=== PATIENT | female | born 1970 | race Caucasian/White ===

== ENCOUNTER → 2022-04-22 | Outpatient (CLI) | payer MEDICAID, SELFPAY ==
[2022-04-22 10:58] LABS: D-Dimer Quantitative (DVT/PE) < 0.27 FEU/ug/m (0.27-0.49)
== END | disposition home or self-care (01) ==
PROVIDERS: PCP Family Medicine; Referring Provider Family Medicine; Visit Provider Family Medicine
DX: R07.9 Chest pain, unspecified (principal)
CPT/HCPCS: 85379

== ENCOUNTER 2023-01-14 13:51 | Emergency (ER) | payer MEDICAID, SELFPAY ==
[2023-01-14 13:52] VITALS: BP 145/120; PULSE 102; RESP 16; TEMP 36.6; O2SAT 100; BMI 34.4
--- NOTE | 2023-01-14 14:29 | EKG12_ITS ---
Test Reason : CP Blood Pressure : / mmHG Vent. Rate : 103 BPM Atrial Rate : 103 BPM P-R Int : 152 ms QRS Dur : 066 ms QT Int : 342 ms P-R-T Axes : 027 028 034 degrees QTc Int : 448 ms Sinus tachycardia Nonspecific T wave abnormality Abnormal ECG Confirmed by OWEN MENDOZA, ROM ([id number]), photography editor TREE LEY ([id number]) on 01/24/2023 7:49:00 AM Referred By: MASON/LIST Confirmed By:ARMANDO WEAVER MD
--- NOTE | 2023-01-14 14:29 | CT_ITS ---
STUDY: CTA CHEST REASON FOR EXAM: Female, 52 years old. Pain -- recent RLL PE/pleural effusion RADIATION DOSAGE (If Supplied By Facility): CTDIvol = ( 13.24 ) mGy, DLP = ( 431.80 ) mGycm TECHNIQUE: The examination was performed with the intravenous administration of IV 100mL Isovue-370. Post-processing of the angiographic images was performed, with multiplanar reformation and 3D reconstruction. Individualized dose optimization techniques were used for this CT. COMPARISON: None. FINDINGS: Normal enhancement of the main pulmonary artery and right and left pulmonary arteries. Normal enhancement of the bilateral peripheral pulmonary arteries. There is no demonstrated pulmonary embolism. Normal thoracic aorta and visualized great vessels. There is no demonstrated aortic dissection. Normal heart and pericardium. Normal mediastinum. Normal hilar regions. Normal visualized trachea and bronchi. The lungs are well expanded. Focal right middle lobe infiltrate. Focal infiltrate at the right lung base. Normal pleura. Normal chest wall structures. There are degenerative changes of thoracic spine. The patient is status post cholecystectomy. CT/CTA Chest W/WO Contrast IMPRESSION: No evidence of a pulmonary embolism. Focal right middle lobe and right lower lobe pulmonary infiltrates. Electronically Signed: Mark Hernandez MD at 15:15 EDT ,
--- NOTE | 2023-01-14 14:30 | EDS_ITS ---
HPI History of Present Illness Chief Complaint: Chest Other Informant: patient Narrative Narrative: Presents from PCP office for evaluation and rescan of her lungs. Patient diagnosed with right lower lobe pulmonary embolism unprovoked approximate 3 weeks ago through [facility]. She was initially hospitalized discharged on Eliquis. States 2 days later return for continued dyspnea found to have pleural effusions. This is on the right side there is no intervention she was put on a diuretic. She has had persistent similar dyspnea with exertion. Yesterday had some chest heaviness substernal overnight. Follow-up with her PCP today sent here for reimaging's. No cardiac history. Remote tobacco use quit 6 months ago. There was no recent travel or surgeries. States only other medical history was intracranial hypertension with reported stent placed behind right vein. She has been compliant with her Eliquis. States symptoms in her chest significantly subsided and is minimal at this time. EKG sent down from office reviewed sinus rate of 87, no ST changes, T wave inversion noted in V3. Nonspecific. Prior Similar Symptoms: Yes CVD Risk Factors: Positive for Family History 1' </=55 and Smoking; Negative for Hypertension, Diabetes or Hypercholesterolemia PE Risk Factors: Positive for Prior DVT or PE; Negative for Recent Travel/Surgery or Recent Immobilization PFSH PFSH Home Medications apixaban 5 mg tablet (Eliquis) 5 mg PO BID 01/14/23 [History Last Taken 01/14] erenumab-aooe 140 mg/mL subcutaneous auto-injector (Aimovig Autoinjector) 140 mg subcut QMONTH 01/14/23 [History Last Taken 12/15/22] esomeprazole magnesium 20 mg capsule,delayed release 20 mg PO BID 01/14/23 [History Last Taken 01/14/23] furosemide 20 mg tablet 20 mg PO DAILY 01/14/23 [History Last Taken 01/14/23] magnesium oxide 400 mg (241.3 mg magnesium) tablet 400 mg PO BID 01/14/23 [His tory Last Taken 01/14/23] paroxetine HCl 10 mg tablet 10 mg PO DAILY 01/14/23 [History Last Taken 01/14/23] potassium chloride 20 mEq tablet,extended release(part/cryst) (Klor-Con M) 20 meq PO DAILY 01/14/23 [History Last Taken 01/14/23] ubrogepant 100 mg tablet (Ubrelvy) 100 mg PO PRN 01/14/23 [History Last Taken 12/15/22] varenicline 1 mg tablet 1 mg PO BID 01/14/23 [History Last Taken 01/14/23] zolpidem 10 mg tablet 10 mg PO QHS 01/14/23 [History Last Taken 01/13/23] Allergy/AdvReac Type Severity Reaction Status Date / Time adhesive tape AdvReac Mild Rash Verified 01/14/23 13:55 acetazolamide AdvReac Diarrhea Verified 01/14/23 13:54 [From Diamox Sequels] Social History Smoking Status: Never smoker ROS ROS ED Constitutional Constitutional ED: Denies chills, fever(s) or sweats Eyes Eyes: Denies change in vision ENT ENT ED: Denies dysphagia or sore throat Cardiovascular Cardiovascular: Reports chest pain; Denies leg edema, palpitations or racing heartbeat Respiratory/Chest Respiratory/Chest: Reports dyspnea and dyspnea on exertion; Denies cough Gastrointestinal Gastrointestinal: Denies abdominal pain, diarrhea, nausea or vomiting Genitourinary Genitourinary ED: Denies dysuria, hematuria or urinary frequency Musculoskeletal Musculoskeletal: Denies back pain, extremity pain or neck pain Integumentary Denies rash or wounds Neurologic Neurologic: Denies headache(s), paresthesias or weakness EXAM Physical Exam Const Vital Signs: 01/14/23 13:52 01/14/23 14:16 01/14/23 16:02 Temperature 97.8 F Temperature Source Temporal Pulse Rate 102 H 94 Respiratory Rate 16 16 Respiratory Effort Normal Non-Labored Blood Pressure 145/120 H 124/70 H Blood Pressure Mean 128 88 Pulse Ox 100 97 Oxygen Delivery Method Room Air Room Air Positive well nourished and well developed General Appearance ED: well developed and NAD HEENT Reports moist mucous membranes normocephalic and atraumatic Eyes PERRL, EOMs intact bilaterally and conjunctivae normal General Eye ED: Yes normal appearance of both eyes Neck no lymphadenopathy and supple General: Negative for tenderness Chest Wall Chest: Negative for tenderness Resp normal respiratory effort and normal air movement Effort and Inspection: symmetric chest movement; Negative for respiratory distress Cardio regular rate, regular rhythm and no murmurs Peripheral Pulses: pulses 2+ throughout GI normal to inspection, nondistended, normoactive bowel sounds and non-tender Palpation: Negative for guarding or rebound tenderness present Back/Spine no CVA tenderness and no thoracic nor lumbar tenderness Extremity normal to inspection General Extremety ED: Negative for edema or tenderness General Extremity: Negative for edema Neuro oriented x3 and no sensory deficits noted Sensorium / Orientation: awake and alert Skin no rashes or lesions noted and no wounds MDM MDM MDM Narrative Medical decision making narrative: Interventions / MDM: Differential diagnosis: Pulmonary embolism, pulmonary infarct, Diagnosis considered but do not suspect: ACS however normal EKG and negative cardiac enzyme, pleural effusions however negative image studies. Pneumonia however no clinical symptoms. My EKG interpretation: Sinus rate of 103, no ST changes T wave inversion V3. Nonspecific. Imaging independently reviewed and interpreted by myself: CT angio chest: Di scussion with radiologist, no pulmonary embolism, no concerns for right middle lobe right lower lobe infiltrate. External documents reviewed: Obtain imaging reports from outside facility through [email or web address] for CT PE on December 23 in December 28 noting right lower lobe segmental and subsegmental PE with ladder noting enlarging pleural effusion on right. Test considered but not ordered:N/A ED course: Patient vital stable, EKG with no ischemic findings. Cardiac work-up initiated, sent in for repeat CT PE test. This was ordered. Cardiac labs negative. CT scan negative for noting PE on scan today this also discussed with radiologist. No pleural effusions. Reported infiltrate right middle right lower however clinically without cough symptoms. Discussed possibility of pulmonary infarct. She is in no respiratory distress pulse ox high 90s. I did discuss with her PCP Dr. Muniz with results today. She will follow-up in the office. Work notes were given for her with restrictions. All questions were answered. Re-evaluation: stable Disposition discussed with patient/family/significant other: Patient Case discussed with consulting clinician: Radiologist and PCP This note was generated with [place] ([employer]) dictation software. It may contain incorrect words, spelling, and punctuation that were not noted in checking the note before signing. Lab Data Attestation: I reviewed the patient's lab results. Labs: Laboratory Results - last 24 hr 01/14/23 14:47 WBC 9.1 RBC 4.51 Hgb 13.7 Hct 43.0 MCV 95.3 MCH 30.4 MCHC 31.9 L RDW Std Deviation 46.1 H RDW Coeff of Lucian 13.2 Plt Count 212 MPV 11.2 Immature Gran % (Auto) 0.600 Neut % (Auto) 64.8 Lymph % (Auto) 28.6 [place] % (Auto) 4.4 Eos % (Auto) 1.2 Baso % (Auto) 0.4 Absolute Neuts (auto) 5.9 Absolute Lymphs (auto) 2.59 Nucleated RBC % 0 PT 15.0 H INR 1.2 APTT 30.6 Sodium 139 Potassium 3.3 L Chloride 107 Carbon Dioxide 23.0 Anion Gap 9 BUN 18 Creatinine 1.00 Estim Creat Clear Calc 64.72 Est GFR (MDRD) Af Amer 75 Est GFR (MDRD) Non-Af 62 BUN/Creatinine Ratio 18.0 Glucose 94 Calcium 9.3 Troponin I High Sens 4 Radiography Diagnostic Testing: Clinical Impression(s) from Imaging Studies Chest CTA 01/14/23 14:29 IMPRESSION: No evidence of a pulmonary embolism. Focal right middle lobe and right lower lobe pulmonary infiltrates. Electronically Signed: Mark Hernandez MD at 15:15 EDT , Discharge Plan Triage Chief Complaint: Chest Other ED Provider: Clyde Wilcox Dx/Rx/DC Orders Clinical Impression: Dyspnea, History of pulmonary embolism, Chest pain, Hypokalemia Instructions: ED Chest Pain, Noncardiac, ED Dyspnea Prescriptions: No Action Eliquis 5 mg tablet 5 mg PO BID Aimovig Autoinjector 140 mg/mL auto-injector 140 mg SUBCUT QMONTH Patient Comments: LAST DOSE ABOUT A MONTH AGO PER PT esomeprazole magnesium 20 mg capsule,delayed release(DR/EC) 20 mg PO BID furosemide 20 mg tablet 20 mg PO DAILY magnesium oxide 400 mg (241.3 mg magnesium) tablet 400 mg PO BID paroxetine HCl 10 mg tablet 10 mg PO DAILY potassium chloride [Klor-Con M20] 20 mEq tablet,ER particles/crystals 20 meq PO DAILY Ubrelvy 100 mg tablet 100 mg PO PRN Patient Comments: TAKE 1 TABLET BY MOUTH NEEDED FOR MIGRAINE..MAY REPEAT 1 TIME... (REFER TO PRESCRIPTION NOTES). varenicline 1 mg tablet 1 mg PO BID zolpidem 10 mg tablet 10 mg PO QHS Primary Care Provider: Zeferino Muniz Referrals: Zeferino Muniz MD [Primary Care Provider] - 5-7 Days Activity Restrictions/Additional Instructions: CT does not note pulmonary embolism today. Noted infiltrative changes however of no cough or concern for pneumonia. Likely infarct regions. Continue your Eliquis. Your cardiac work-up negative. I discussed with Dr. Muniz in the ED. Continue home medications. Follow-up with Dr. Muniz. Disposition Disposition: Home, Self Care Discharge Date/Time: 01/14/23 16:36
[2023-01-14 15:02] LABS: Absolute Lymphocyte Count 2.59 X10^3/uL (0.83-4.51); Absolute Neutrophil Count 5.9 X10^3/uL (2.0-7.7); Basophil# 0.04 X10^3/uL; Basophil% 0.4 % (0-1); Eosinophil# 0.11 X10^3/uL; Eosinophils% 1.2 % (0-5); Hemoglobin 13.7 g/dL (12.0-15.0); Lymphocyte # 2.59 X10^3/ul (0.83-4.51); Lymphocyte % 28.6 % (19-41); Mean Corp Hgb Conc 31.9 g/dL (32-36); Mean Corpuscular Hgb 30.4 pg (27.0-32.0); Mean Corpuscular Volume 95.3 fL (81-99); Mean Platelet Vol. 11.2 fl (6.2-12.0); Monocyte% 4.4 % (0-10); NRBC Flagged by Analyzer 0 % (0-5); Neutrophil # 5.87 X10^3/uL (2.7-7.7); Neutrophil % 64.8 % (47-70); Platelet Count 212 K/mm3 (150-450); RBC Distribution Width CV 13.2 % (11.6-14.6); RBC Distribution Width SD 46.1 fl (35.1-43.9); Red Blood Count 4.51 M/mm3 (4.2-5.4); White Blood Count 9.1 K/mm3 (4.4-11.0)
[2023-01-14 15:25] LABS: International Normalized Ratio 1.2
[2023-01-14 15:26] LABS: Partial Thromboplast Time 30.6 Seconds (24.1-36.2)
[2023-01-14 15:41] LABS: Anion Gap 9 (5-15); BUN 18 mg/dL (7-18); Calcium,Total 9.3 mg/dL (8.5-10.1); Chloride 107 mmol/L (98-107); EST Glomerular Filtration Rate 62 mL/min (>60); Est Glom Filt Rate - Afr Amer 75 mL/min (>60); Estimated Creatinine Clearance 64.72 ml/min; Glucose 94 mg/dL (74-106); Potassium 3.3 mmol/L (3.5-5.1); Sodium Level 139 mmol/L (136-145); Troponin-I HS (w/2H Reflex) 4 pg/mL (3.0-54.0)
[2023-01-14 16:02] VITALS: BP 124/70; PULSE 94; RESP 16; O2SAT 97
[2023-01-14] MEDS: Potassium Chloride Oral Tablet 20 MEQ 40 MEQ PO (16:02)
[2023-01-14 16:50] LABS: Reflex Troponin-HS? (from REC) Y
== END 2023-01-14 16:36 | disposition home or self-care (01) ==
PROVIDERS: Emergency Provider Emergency Medicine; PCP Family Medicine; Visit Provider Emergency Medicine
DX: R06.09 Other forms of dyspnea (principal); R07.9 Chest pain, unspecified; E87.6 Hypokalemia; Z79.01 Long term (current) use of anticoagulants; Z79.899 Other long term (current) drug therapy
CPT/HCPCS: 71275; 80048; 84484; 85025; 85610; 85730; 93005; 99284; Q9967

== ENCOUNTER 2023-03-21 19:21 | Emergency (ER) | payer MEDICAID, SELFPAY ==
[2023-03-21 19:22] VITALS: BP 200/105; PULSE 87; RESP 18; TEMP 36.4; O2SAT 100; BMI 36.6
--- NOTE | 2023-03-21 19:51 | EKG12_ITS ---
Test Reason : DYSRHYTHMIA Blood Pressure : / mmHG Vent. Rate : 078 BPM Atrial Rate : 078 BPM P-R Int : 138 ms QRS Dur : 074 ms QT Int : 408 ms P-R-T Axes : 007 034 014 degrees QTc Int : 465 ms Normal sinus rhythm Septal infarct , age undetermined Abnormal ECG Confirmed by LEWIS MENDOZA, REBECCA ([id number]), associate entertainment editor OSIEL HILLMAN ([id number]) on 03/22/2023 10:08:38 AM Referred By: FERNANDO Confirmed By:REBECCA SAUCEDO MD
--- NOTE | 2023-03-21 20:01 | EDS_ITS ---
HPI History of Present Illness Chief Complaint: Shortness of Breath Narrative Narrative: This is a 52-year-old female sent in by Dr. Muniz for follow-up. Apparently 2 months ago she had a PE and was on Eliquis. At that point she was put in the hospital and she had a large pleural effusion. Dr. Muniz states that they consider doing a thoracentesis secondary to the size however it was difficult to find access so they decided not to do this. Patient was placed on diuresis while in the hospital. Subsequently was admitted to [facility] for dehydration, hypocalcemia, and diarrhea. CT scan at that time showed possible colitis. Patient was hypotensive on admission as well. Patient presented to the office today for follow-up complaining of dyspnea on exertion states she can walk even across the street. He reports to me that she has had 2 echoes in the last 6 months and a stress test within the last year. She still on Eliquis. She was on a beta-mark but this has been stopped. She is not on anything for blood pressure. Patient states that her only new symptom is that she has dyspnea on exertion for the last week. Denies fevers, chills, cough. Denies chest pain. She has not missed any doses of her Eliquis. [facility] Home Medications apixaban 5 mg tablet (Eliquis) 5 mg PO BID 01/14/23 [History Last Taken 01/14/23] erenumab-aooe 140 mg/mL subcutaneous auto-injector (Aimovig Autoinjector) 140 mg subcut QMONTH 01/14/23 [History Last Taken 12/15/22] esomeprazole magnesium 20 mg capsule,delayed release 20 mg PO BID 01/14/23 [History Last Taken 01/14/23] furosemide 20 mg tablet 20 mg PO DAILY 01/14/23 [History Last Taken 01/14/23] magnesium oxide 400 mg (241.3 mg magnesium) tablet 400 mg PO BID 01/14/23 [History Last Taken 01/14/23] paroxetine HCl 10 mg tablet 10 mg PO DAILY 01/14/23 [History Last Taken 01/14/23] potassium chloride 20 mEq tablet,extended release(part/cryst) (Klor-Con M) 20 meq PO DAILY 01/14/23 [History Last Taken 01/14/23] ubrogepant 100 mg tablet (Ubrelvy) 100 mg PO PRN 01/14/23 [History Last Taken 12/15/22] varenicline 1 mg tablet 1 mg PO BID 01/14/23 [History Last Taken 01/14/23] zolpidem 10 mg tablet 10 mg PO QHS 01/14/23 [History Last Taken 01/13/23] amlodipine 5 mg tablet 5 mg PO DAILY #30 tabs 03/21/23 [Rx Last Taken Unknown] azithromycin 250 mg tablet 250 mg PO DAILY #4 TABLETS 03/21/23 [Rx Last Taken Unknown] Allergy/AdvReac Type Severity Reaction Status Date / Time adhesive tape AdvReac Mild Rash Verified 03/21/23 19:21 acetazolamide AdvReac Diarrhea Verified 03/21/23 19:21 [From Diamox Sequels] Social History Smoking Status: Never smoker ROS ROS ED Constitutional Constitutional ED: Denies chills, fever(s) or sweats Eyes Eyes: Denies blurry vision or change in vision ENT ENT ED: Denies ear pain or sore throat Cardiovascular Cardiovascular: Denies chest pain, palpitations or racing heartbeat Respiratory/Chest Respiratory/Chest: Denies cough, dyspnea or sputum Gastrointestinal Gastrointestinal: Denies abdominal pain, constipation, diarrhea, nausea or vomiting Genitourinary Genitourinary ED: Denies dysuria, hematuria or urinary frequency Musculoskeletal Musculoskeletal: Denies arthralgias, myalgias or neck pain Integumentary Denies abscess, Abrasions or rash Neurologic Neurologic: Denies headache(s), paresthesias or weakness Psychiatric Psychiatric: Denies anxiety, depression, suicidal ideation or suicidal thoughts Endocrine Endocrinology: Denies polydipsia or polyuria EXAM Physical Exam Const Vital Signs: 03/21/23 19:22 03/21/23 19:51 03/21/23 19:51 Temperature 97.6 F L Temperature Source Temporal Pulse Rate 87 Respiratory Rate 18 Respiratory Effort Normal Non-Labored Respiratory Depth Normal Respiratory Pattern Normal Blood Pressure 200/105 H Blood Pressure Mean 136 Pulse Ox 100 Oxygen Delivery Method Room Air Room Air Room Air 03/21/23 20:21 Temperature Temperature Source Pulse Rate 81 Respiratory Rate 16 Respiratory Effort Respiratory Depth Respiratory Pattern Blood Pressure 168/103 H Blood Pressure Mean 124 Pulse Ox 97 Oxygen Delivery Method Room Air Positive well nourished General Appearance ED: NAD Eyes PERRL and EOMs intact bilaterally Resp normal respiratory effort Cardio regular rate and regular rhythm GI non-tender Extremity normal to inspection Neuro oriented x3 and CN's II-XII intact bilaterally Psych mental status grossly normal Skin no wounds MDM MDM MDM Narrative Medical decision making narrative: Patient presents with dyspnea on exertion. He has a history of PE. She states she has had 2 echocardiograms and a stress test in the last year which were normal. Patient states that she was diuresed for pleural effusion while she was in the hospital for PE and believes she was over diuresed which is causing her dehydration and her electrolyte abnormalities which caused her to be hospitalized in [place]. Patient states she followed up with her regular doctor today and was sent to the ER again for evaluation. Patient does not have any chest pain. She does not take any Lasix. Patient states she feels otherwise well except for dyspnea on exertion. Denies fever, chills. CBC will be obtained to assess white blood cell count, hemoglobin, platelets. BMP to assess renal function, electrolytes. High-sensitivity troponin and EKG to assess for ischemia/dysrhythmia. BNP to assess for CHF. Chest x-ray to look for pneumonia versus CHF. CBC shows normal white blood cell count 10.8. Hemoglobin stable 13.7. Platelets normal at 232. Renal function slightly decreased and her creatinine is 1.26 and her GFR is 48. Patient admits to me that she is drinking a lot of fluids and actually has potassium and magnesium supplements even though these are both low today. It is possible she could be diluting these. High- sensitivity troponin is 6. EKG on my interpretation shows a normal sinus rhythm with ventricular rate of 78 bpm without sign of ischemic change. Chest x-ray on my interpretation shows a right perihilar infiltrate. The radiologist interprets this and agrees. Discussed all findings with the patient and she was ambulated in the hallway and maintained pulse ox of 90 to 93%. She wants to try to go home. I replaced her magnesium via the IV and give her oral potassium 40 mill equivalents. She will replete these again at home when she goes home. I will also get her started on amlodipine 5 mg for history of hypertension as her blood pressure is 168/103 and she will also be given a Z-Jonnathan. This was after talking to the on-call physician for Dr. Muniz. She will send him a note. Impression: 1. Dyspnea 2. Pneumonia 3. Dehydration 4. Hypokalemia 5. Hypomagnesemia Lab Data Attestation: I reviewed the patient's lab results. Labs: Laboratory Results - last 24 hr 03/21/23 20:07 WBC 10.8 RBC 4.47 Hgb 13.7 Hct 41.3 MCV 92.4 MCH 30.6 MCHC 33.2 RDW Std Deviation 46.5 H RDW Coeff of Lucian 13.7 Plt Count 232 MPV 11.0 Immature Gran % (Auto) 0.600 Neut % (Auto) 68.0 Lymph % (Auto) 25.3 [place] % (Auto) 4.4 Eos % (Auto) 1.4 Baso % (Auto) 0.3 Absolute Neuts (auto) 7.4 Absolute Lymphs (auto) 2.74 Nucleated RBC % 0 Sodium 142 Potassium 3.0 L Chloride 110 H Carbon Dioxide 26.0 Anion Gap 6 BUN 11 Creatinine 1.26 H Estim Creat Clear Calc 51.37 Est GFR (MDRD) Af Amer 58 L Est GFR (MDRD) Non-Af 48 L BUN/Creatinine Ratio 8.7 L Glucose 109 H Calcium 8.8 Magnesium 1.0 L Troponin I High Sens 6 B-Natriuretic Peptide 22.0 Radiography Diagnostic Testing: Clinical Impression(s) from Imaging Studies Chest X-Ray 03/21/23 23:01 IMPRESSION: Right perihilar infiltrate. Electronically Signed: Kyle Hurst MD at 21:21 EST , Discharge Plan Triage Chief Complaint: Shortness of Breath ED Provider: Bruno Fernando Dx/Rx/DC Orders Instructions: ED Hypertension New Begin Treatment, ED Pneumonia (Adult) Prescriptions: New amlodipine 5 mg tablet 5 mg PO DAILY Qty: 30 0RF azithromycin 250 mg tablet 250 mg PO DAILY Qty: 4 0RF No Action Eliquis 5 mg tablet 5 mg PO BID Aimovig Autoinjector 140 mg/mL auto-injector 140 mg SUBCUT QMONTH Patient Comments: LAST DOSE ABOUT A MONTH AGO PER PT esomeprazole magnesium 20 mg capsule,delayed release(DR/EC) 20 mg PO BID furosemide 20 mg tablet 20 mg PO DAILY magnesium oxide 400 mg (241.3 mg magnesium) tablet 400 mg PO BID paroxetine HCl 10 mg tablet 10 mg PO DAILY potassium chloride [Klor-Con M20] 20 mEq tablet,ER particles/crystals 20 meq PO DAILY Ubrelvy 100 mg tablet 100 mg PO PRN Patient Comments: TAKE 1 TABLET BY MOUTH NEEDED FOR MIGRAINE..MAY REPEAT 1 TIME... (REFER TO PRESCRIPTION NOTES). varenicline 1 mg tablet 1 mg PO BID zolpidem 10 mg tablet 10 mg PO QHS Primary Care Provider: Zeferino Muniz Referrals: Zeferino Muniz MD [Primary Care Provider] - Disposition Disposition: Home, Self Care
[2023-03-21 20:14] LABS: Absolute Lymphocyte Count 2.74 X10^3/uL (0.83-4.51); Absolute Neutrophil Count 7.4 X10^3/uL (2.0-7.7); Basophil# 0.03 X10^3/uL; Basophil% 0.3 % (0-1); Eosinophil# 0.15 X10^3/uL; Eosinophils% 1.4 % (0-5); Hematocrit 41.3 % (37-47); Hemoglobin 13.7 g/dL (12.0-15.0); Lymphocyte # 2.74 X10^3/ul (0.83-4.51); Lymphocyte % 25.3 % (19-41); Mean Corp Hgb Conc 33.2 g/dL (32-36); Mean Corpuscular Hgb 30.6 pg (27.0-32.0); Mean Corpuscular Volume 92.4 fL (81-99); Monocyte# 0.48 X10^3/uL; Monocyte% 4.4 % (0-10); NRBC Flagged by Analyzer 0 % (0-5); Neutrophil # 7.35 X10^3/uL (2.7-7.7); Platelet Count 232 K/mm3 (150-450); RBC Distribution Width CV 13.7 % (11.6-14.6); RBC Distribution Width SD 46.5 fl (35.1-43.9); Red Blood Count 4.47 M/mm3 (4.2-5.4); White Blood Count 10.8 K/mm3 (4.4-11.0)
[2023-03-21 20:21] VITALS: BP 168/103; PULSE 81; RESP 16; O2SAT 97
[2023-03-21 20:30] LABS: Anion Gap 6 (5-15); BUN 11 mg/dL (7-18); BUN/Creat Ratio 8.7 RATIO (10-20); Calcium,Total 8.8 mg/dL (8.5-10.1); Chloride 110 mmol/L (98-107); Creatinine, Serum 1.26 mg/dL (0.55-1.02); EST Glomerular Filtration Rate 48 mL/min (>60); Est Glom Filt Rate - Afr Amer 58 mL/min (>60); Estimated Creatinine Clearance 51.37 ml/min; Glucose 109 mg/dL (74-106); Sodium Level 142 mmol/L (136-145); Troponin-I HS 6 pg/mL (3.0-54.0)
[2023-03-21] MEDS: Potassium Chloride Oral Tablet 20 MEQ 40 MEQ PO (20:49)
[2023-03-21] MEDS: 0.9% Normal Saline (1000mL) 1,000 ML 999 ML IV (20:49)
[2023-03-21] MEDS: Magnesium Sulfate 4gm/100mL 4 GM/100 ML IV.SOLN. IV (21:29)
[2023-03-21 21:36] VITALS: O2SAT 94
[2023-03-21 22:00] VITALS: BP 147/82; PULSE 75; RESP 16; O2SAT 98
[2023-03-21] MEDS: Azithromycin 250 MG Tablet 500 MG PO (22:59)
[2023-03-21 23:00] VITALS: RESP 16
--- NOTE | 2023-03-21 23:01 | RAD_ITS ---
STUDY: X-RAY CHEST REASON FOR EXAM: Female, 52 years old. Chest pain TECHNIQUE: Single AP portable view of the chest. COMPARISON: None. FINDINGS: There are monitoring devices. There is focal right perihilar consolidation. There is no demonstrated pleural abnormality. Normal size heart. Normal mediastinum and jerrell. Normal visualized pulmonary arteries. Normal visualized aortic arch and descending thoracic aorta. Normal visualized thoracic spine. Normal visualized ribs, clavicles, and shoulders. There is no demonstrated abnormality of the visualized soft tissue structures of the upper abdomen. RAD/Chest 1 View (Portable) IMPRESSION: Right perihilar infiltrate. Electronically Signed: Kyle Hurst MD at 21:21 EST ,
[2023-03-22] VITALS: RESP 16
[2023-03-22 01:00] VITALS: BP 163/81; PULSE 77; RESP 16; O2SAT 98
--- NOTE | 2023-03-22 01:35 | ED.RN ---
PT STATES SHE HAS TO WORK IN THE MORNING AND IS REFUSING TO STAY FOR IV FLUIDS TO RUN IN AFTER MAGNESIUM. CHARGE NURSE MADE AWARE.
== END 2023-03-22 01:46 | disposition home or self-care (01) ==
PROVIDERS: Emergency Provider Student in an Organized Health Care Education/Training Program; PCP Family Medicine; Visit Provider Student in an Organized Health Care Education/Training Program
DX: J18.9 Pneumonia, unspecified organism (principal); E83.42 Hypomagnesemia; E86.0 Dehydration; E87.6 Hypokalemia; I10 Essential (primary) hypertension; Z79.01 Long term (current) use of anticoagulants; Z86.711 Personal history of pulmonary embolism
CPT/HCPCS: 71045; 80048; 83735; 83880; 84484; 85025; 87631; 93005; 96365; 96366; 99284; J7030; J7050; A4216